=== PATIENT | female | born 1995 | race American Indian/Alaskan Native ===

== ENCOUNTER 2016-09-17 18:42 | Emergency (ER) | payer SELFPAY ==
--- NOTE | 2016-09-17 19:56 | Emergency Department Report ---
Chief Complaint: Syncope Stated Complaint: FAINTED AT WORK Time Seen by Provider: 09/17/16 19:53 - HPI History of Present Illness: PT states she fainted while at work. PT states she thinks it was from not eating. PT states this happened to her a couple of years ago. PT denies any pain - ROS Review of Systems: +dizziness + loc -abd pain - abnormal menses - lmp 08-18-16 - Exam Vital Signs: Vital Signs 09/17/16 18:49 Temperature 98.6 F Pulse Rate 100 H Respiratory 20 Rate Blood Pressure 103/65 O2 Sat by Pulse 100 Oximetry Physical Exam: PT looks well, non toxic. PT with steady gait gcs 15 MSE screening note: Focused history and physical exam performed. Due to findings the following was ordered: ekg, labs ED Disposition for MSE Condition: Stable
[2016-09-17 20:14] LABS: Basophils % (Auto) 0.9 % (0.0-1.8); Eosinophils % (Auto) 0.5 % (0.0-4.3); Hematocrit 32.5 % (30.3-42.9); Hemoglobin 10.7 gm/dl (10.1-14.3); Mean Corpuscular HGB Conc 33 % (30-34); Platelet Count 269 K/mm3 (140-440); Red Blood Count 4.74 M/mm3 (3.65-5.03); Red Cell Distribution Width 18.9 % (13.2-15.2); White Blood Count 7.6 K/mm3 (4.5-11.0)
[2016-09-17 20:15] LABS: Mean Corpuscular Hemoglobin 23 pg (28-32); Mean Corpuscular Volume 69 fl (79-97)
[2016-09-17 20:36] LABS: Alanine Aminotransferase 7 units/L (7-56); Albumin 4.7 g/dL (3.9-5); Albumin/Globulin Ratio 1.2 %; Alkaline Phosphatase 55 units/L (35-129); Anion Gap 20 mmol/L; BUN/Creatinine Ratio 28.75; Bilirubin,Total 0.3 mg/dL (0.1-1.2); Blood Urea Nitrogen 23 mg/dL (7-17); Calcium 9.2 mg/dL (8.4-10.2); Carbon Dioxide 21 mmol/L (22-30); Chloride 97.3 mmol/L (98-107); Creatine Kinase 90 units/L (30-135); Glucose 81 mg/dL (65-100); Sodium 134 mmol/L (137-145); Total Protein 8.6 g/dL (6.3-8.2)
--- NOTE | 2016-09-17 22:39 | Emergency Department Report ---
HPI - General Chief Complaint: Syncope Time Seen by Provider: 09/17/16 19:53 - HPI HPI: This is a 21-year-old Af[place] female who drove herself in to be seen after she had a syncopal episode at work around 4:30 PM. Patient says she felt very dizzy all of a sudden and then passed out. This was witnessed and the patient was out for about 1-2 minutes. Patient currently is a symptomatically without any complaints. She says she has passed out one time in the past but it was many years ago. She is unsure whether she her head but denies any headache, vision change, slurred speech or any neurological deficits. The patient admits to not eating any breakfast or lunch today. She did not take anything for symptoms prior to presentation. She denies any past medical history. Recent travel or sick contacts at home. She does not have a primary care doctor. ED Past Medical Hx - Past Medical History Previous Medical History?: Yes Additional medical history: syncopal episode - Surgical History Past Surgical History?: No - Social History Smoking Status: Never Smoker Substance Use Type: Alcohol - Medications Home Medications: Home Medications Medication Instructions Recorded Confirmed Last Taken Type No Known Home Medications [No 09/17/16 09/17/16 Unknown History Reported Home Medications] ED Review of Systems ROS: Stated complaint: FAINTED AT WORK Other details as noted in HPI Comment: All other systems reviewed and negative Constitutional: denies: chills, fever Eyes: denies: eye pain, eye discharge, vision change ENT: denies: ear pain, throat pain Respiratory: denies: cough, shortness of breath, wheezing Cardiovascular: syncope. denies: chest pain Gastrointestinal: denies: abdominal pain, nausea, diarrhea Genitourinary: denies: urgency, dysuria, discharge Musculoskeletal: denies: back pain, joint swelling, arthralgia Skin: denies: rash, lesions Neurological: denies: headache, weakness, paresthesias Physical Exam - Physical Exam Vital Signs: Vital Signs 09/17/16 18:49 Temperature 98.6 F Pulse Rate 100 H Respiratory 20 Rate Blood Pressure 103/65 O2 Sat by Pulse 100 Oximetry Physical Exam: GENERAL: The patient is well-developed well-nourished. HEENT: Normocephalic. Atraumatic. Extraocular motions are intact. Patient has moist mucous membranes. Pupils equal reactive to light bilaterally. No nystagmus. NECK: Supple. Trachea is midline. CHEST/LUNGS: Clear to auscultation. There is no respiratory distress noted. HEART/CARDIOVASCULAR: Regular. There is no tachycardia. There is no gallop rub or murmur. ABDOMEN: Abdomen is soft, nontender. Patient has normal bowel sounds. There is no abdominal distention. SKIN: Warm and dry. NEURO: The patient is awake, alert, and oriented. The patient is cooperative. The patient has no focal neurologic deficits. The patient has normal speech and gait. Cranial nerves II through XII grossly intact. No pronator drift. No dysmetria. MUSCULOSKELETAL: There is no tenderness or deformity. There is no limitation range of motion. There is no evidence of acute injury. Muscle strength 5 out of 5 for upper and lower extremities bilaterally. ED Course Vital Signs 09/17/16 18:49 Temperature 98.6 F Pulse Rate 100 H Respiratory 20 Rate Blood Pressure 103/65 O2 Sat by Pulse 100 Oximetry ED Medical Decision Making - Lab Data Result diagrams: 09/17/16 19:58 09/17/16 19:58 - EKG Data -: EKG Interpreted by Oh EKG shows normal: sinus rhythm, axis, intervals, QRS complexes, ST-T waves Rate: normal - EKG Data When compared to previous EKG there are: previous EKG unavailable Interpretation: normal EKG - Medical Decision Making This is a 21-year-old female presents to the emergency department after a single syncopal episode around 4:30 PM this afternoon. Patient has been a symptomatically since being in the emergency department and has continued to be through her discharge which is now, 7 hours later. Patient's vital signs are stable throughout her ED course. Her EKG is normal without any ST elevation [place] , ischemia or dysrhythmia. Patient's labs and unremarkable including no signs of infection in the urine or blood, electrolyte abnormalities, renal insufficiency, glucose abnormalities. She has normal thyroid function and she is not . Patient seen ambulatory in the emergency department and appears stable. She was given referrals for primary care. She'll return to the ER with any recurrence of her passing out or any acute process. - Differential Diagnosis orthostatic hypotension, vasovagal, TIA, Critical Care Time: No Critical care attestation.: If time is entered above; I have spent that time in minutes in the direct care of this critically ill patient, excluding procedure time. ED Disposition Clinical Impression: Syncope Qualifiers: Syncope type: unspecified Qualified Code(s): R55 - Syncope and collapse Disposition: DISCHARGED TO HOME OR SELFCARE Is pt being admited?: No Condition: Stable Instructions: Syncope (ED) Additional Instructions: Is follow-up with a primary care doctor in the next few days. Return to the emergency department with any recurrence of passing out or any acute distress. Referrals: PRIMARY CAREMD [Primary Care Provider] - 3-5 Days ADRI ALFREDO MD, PHD [Staff Physician] - 3-5 Days [facility] [Outside] - 3-5 Days Time of Disposition: 23:55
[2016-09-17 23:54] LABS: Bacteria,Urine 1+ /HPF (Negative); Bilirubin,Urine NEG (Negative); Blood,Urine NEG (Negative); Ketones,Urine TR mg/dL (Negative); Leukocyte Esterase,Urine NEG (Negative); Mucus,Urine FEW /HPF; Nitrite,Urine NEG (Negative); Protein,Urine <15 mg/dL mg/dL (Negative); Urobilinogen,Urine < 2.0 mg/dL (<2.0)
[2016-09-18 00:26] VITALS: BP 132/84
== END 2016-09-18 00:30 | disposition home or self-care (01) ==
LOC: ED 18:42
DX: R55 Syncope and collapse (principal)
CPT/HCPCS: 36415; 80053; 81001; 81025; 82550; 82962; 84443; 84484; 85025; 93005; 93010; 99283